=== PATIENT | female | born 1985 | race African-American/Black ===

== ENCOUNTER 2016-12-11 06:18 | Emergency (ER) | payer OTHER ==
[~2016-12-11] VITALS: Ht 170.2 cm; Wt 129.3 kg
[~2016-12-11 06:18] MED LIST: BACTRIM DS 8001 TAB PO; DOXYCYCLINE150 M1 PO; LISINOPRIL 10MG10 MG PO; LODINE200 MG PO; MACROBID 100MG100 MG PO; NOMEDS *; PHENERGAN 25MG.25 M1 PO; VICODIN 5/500 T1 TAB PO; VOLTAREN75 MG PO
--- NOTE | 2016-12-11 06:42 | Emergency Room Report ---
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 N Clinical Suspician of Infection? N Mental Status: 1 - Regular (Normal Baseline) Sepsis Risk:Low Sepsis Risk Have you (or family members/close friends) recently traveled outside the [place]? N If Yes, where/when: Have you had exposure to infectious disease within the past month? N TB? Other? Specify: Source patient, RN notes reviewed, family, old records Exam Limitations no limitations Comment pt with known exposure to flu and presents for eval as she is achey and sl cough Cardiac Chest Pain Chest pain indicative of cardiac No Timing/Duration this evening Severity moderate ALLERGIES Coded Allergies: No Known Allergies (04/11/16) Home Medications Reported Medications No Known Home Medications History Medical History General Angina: No [place]: No Hypertension? Yes Hyperlipidemia? No CHF? No COPD? No Asthma? No Thyroid Problems? No Hypothyroidism? No CVA? No Seizures? No Diabetes? No GB Disease: No MRSA? No TB? No Cancer? 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 Respiratory denies cough, denies shortness of breath, denies wheezing Cardiovascular denies chest pain, denies palpitations, denies syncope Gastrointestinal denies diarrhea, nausea Genitourinary denies: dysuria, frequency, hesitancy, hematuria. Musculoskeletal denies back pain, denies joint pain, denies joint swelling, denies neck pain Skin denies rash Psychiatric/Neurological denies headache, denies seizure Physical Exam Vital Signs Vital Signs Date Time Temp Pulse Resp B/P Pulse O2 O2 Flow FiO2 Ox Delivery Rate 12/12 627 98.7 68 18 154/69 100 - WBC >12,000 or <4,000 or 10% bands? 2 or more SIRS Criteria Met? B/P:154/69 MAP:97 Creatinine >2.0? UA output<0.5ml/kg/hr for 2 hrs? Platelet count >100,000? Lactate >2.0mmol/1? INR >1.2 or PTT > than 60 sec? Evidence of Organ Dysfunction? Provider documented clinical suspician of infection? N Sepsis Criteria Count: 1 Sepsis Risk: Low Sepsis Risk General Appearance no apparent distress Eye Exam - bilateral eye PERRL, bilateral eye EOMI Ear, Nose, Throat normal ENT inspection Neck supple Respiratory Status No: respiratory distress. Lung Sounds bilateral: lungs clear. 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 No Results/Orders Laboratory Tests 12/11/16 0626: Influenza Type A Ag NOT DETECTED, Influenza Type B Ag NOT DETECTED Orders Procedure Date/time Status INFLUENZA A&B ANTIGENS 12/11 626 Complete Departure Departure Time of Disposition 07 Disposition DC Home or Self Care(routine) Clinical Impression Primary Impression: Flu syndrome Condition STABLE Referrals Sulaiman Wetzel (Family) Patient Instructions DI for H1N1 Influenza -- Adult Additional Instructions advil/tyenol and use meds and see pcp for follow up Discharge Counseling Counseled pt/family regarding diagnosis, test results, medications/RX, follow up needs Prescriptions Current Visit Scripts Oseltamivir Phosphate (Tamiflu 75MG Capsule) 75 MG PO BID #10 CAP ED Critical Care Critical Care No at 0716
[2016-12-11] MEDS ORDERED: TAMIFLU 75MG CA75 MG PO (07:12)
[2016-12-11 07:16] VITALS: BP 122/67
== END 2016-12-11 07:18 | disposition home or self-care (01) ==
LOC: ER 06:18
DX: J10.1 Influenza due to other identified influenza virus with other respiratory manifestations (principal)

== ENCOUNTER 2017-07-09 05:36 | Emergency (ER) | payer SELFPAY ==
[~2017-07-09] VITALS: Ht 170.2 cm; Wt 133.8 kg
--- NOTE | 2017-07-09 07:09 | Emergency Room Report ---
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 N Clinical Suspician of Infection? N Mental Status: 1 - Regular (Normal Baseline) Sepsis Risk:Low Sepsis Risk Have you (or family members/close friends) recently traveled outside the [place]? N If Yes, where/when: Have you had exposure to infectious disease within the past month? N TB? Other? Specify: Source patient, RN notes reviewed, family, old records Exam Limitations no limitations Comment pt with swollen ankle over the last few days w/o sob or fever Cardiac Chest Pain Chest pain indicative of cardiac No Timing/Duration this evening Severity moderate ALLERGIES Coded Allergies: No Known Allergies (04/11/16) Home Medications Reported Medications Phentermine HCl (Adipex-P) 37.5 MG PO DAILY History Medical History General CAD? No Angina: No [place]: No Hypertension? Yes Hyperlipidemia? No CHF? No DVT? No PE? No COPD? No Asthma? No Anemia? No GERD? No Gastric ulcers? No GI Bleed? No Hernia? No Thyroid Problems? No Hypothyroidism? No CVA? No Seizures? No Diabetes? No Renal Insuffiency? No End Stage Renal Disease? No UTI? No Stones? No BPH? No GB Disease: No Nephritic Syndrome? No Asplenia? No Hepatitis? No Sickle Cell Disease? No Arthritis? No Migraines? No Cataracts? No Glaucoma? No MRSA? No HIV? No TB? No Anxiety? No Depression? No Cancer? No More? 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 Respiratory denies cough, denies shortness of breath, denies wheezing Cardiovascular denies chest pain, denies palpitations, denies syncope Gastrointestinal denies abdominal pain, denies diarrhea, denies vomiting Genitourinary denies: dysuria, frequency, hesitancy, hematuria. Musculoskeletal denies back pain, denies joint pain, denies neck pain Skin denies rash Psychiatric/Neurological denies headache, denies seizure Physical Exam Vital Signs Vital Signs Date Time Temp Pulse Resp B/P Pulse O2 O2 Flow FiO2 Ox Delivery Rate 07/09 0542 98.2 62 14 147/79 99 - WBC >12,000 or <4,000 or 10% bands? 2 or more SIRS Criteria Met? B/P:147/79 MAP:101 Creatinine >2.0? UA output<0.5ml/kg/hr for 2 hrs? Platelet count >100,000? Lactate >2.0mmol/1? INR >1.2 or PTT > than 60 sec? Evidence of Organ Dysfunction? Provider documented clinical suspician of infection? N Sepsis Criteria Count: 0 Sepsis Risk: Low Sepsis Risk General Appearance no apparent distress Eye Exam - bilateral eye PERRL, bilateral eye EOMI Ear, Nose, Throat normal ENT inspection Neck supple Respiratory Status No: respiratory distress. 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 No Results/Orders Laboratory Tests 07/09/17 0745: Urine Color YELLOW, Urine Appearance CLEAR, Urine pH 6.0, Ur Specific [place] 1.025, Urine Protein NEGATIVE, Urine Ketones NEGATIVE, Urine Blood TRACE-LYSED, Urine Nitrate NEGATIVE, Urine Bilirubin NEGATIVE, Urine Urobilinogen 0.2, Ur Leukocyte Esterase NEGATIVE, Urine RBC OCC, Urine WBC 3-5, Ur Squamous Epith Cells 5-10, Urine Bacteria 2+, Urine Glucose NEGATIVE 07/09/17 0715: Sodium 139, Potassium 4.3, Chloride 107, Carbon Dioxide 25, BUN 16, Creatinine 0.9, Estimated Creat Clear 191, Estimated GFR (MDRD) 73, Glucose 106, Calcium 8.5, Total Bilirubin 0.2, AST 13 L, ALT 24, Alkaline Phosphatase 72, Total Protein 7.4, Albumin 3.4, Globulin 4.0 H, Albumin/Globulin Ratio 0.9 L, TSH 1.70, Thyroxine (T4) 5.9, WBC 4.5 L, RBC 4.45, Hgb 10.2 L, Hct 33.5 L, MCV 75.2 L, RDW 14.9, Plt Count 294, Gran % 46.6, Gran # 2.1, Lymphocytes % 46.1, Monocytes % 7.3, Lymphocytes # 2.1, Monocytes # 0.3, PUBS MCHC 30.4 L, MCH 22.9 L Orders Procedure Date/time Status CULTURE, URINE 07/09 745 Active URINE 07/09 711 Complete URINALYSIS/COMPLETE 07/09 710 Complete THYROID STIMULATING HORMONE 07/09 710 Complete THYROXINE (T4) 07/09 710 Complete COMPLETE METABOLIC PANEL 07/09 710 Complete CBC WITH AUTO DIFF 07/09 710 Complete Departure Departure Time of Disposition 804 Disposition DC Home or Self Care(routine) Clinical Impression Primary Impression: Dependent edema Secondary Impressions: Anemia Qualifiers: Anemia type: unspecified type Qualified Code: D64.9 - Anemia, unspecified Condition STABLE Patient Instructions DI for Dependent Edema Additional Instructions please see pcp for follow up Discharge Counseling Counseled pt/family regarding diagnosis, test results, follow up needs ED Critical Care Critical Care No at 0807
[2017-07-09 07:26] LABS: HEMOGLOBIN 10.2 g/dL (12.2-16.2); LYMPH # 2.1 K/mm3 (0.7-4.5); LYMPH % 46.1 % (10-50.0)
[2017-07-09 07:53] LABS: URINE BILIRUBIN - DIPSTICK NEGATIVE (NEG); URINE BLOOD TRACE-LYSED (NEG)
[2017-07-09 08:27] VITALS: BP 138/82
--- OUTSIDE RECORDS SUMMARY | 2017-07-18 06:26 | External Medical Summary Rpt | CCD ---
Author Author , JACKIE MEJIA Address Unknown Phone [email or web address] Care Team Providers Care Potato Picker Name Role Phone NEHEMIAS MALONEY MD, Unavailable Unavailable NEHEMIAS MALONEY MD Purpose Continuity of Care Document - 06-17-2012 through 2016 Problems Code Diagnosis DOS Provider Status 305.1 305.1 05-18-2013 [place] TOBACCO USE [facility] 401.9 401.9 05-18-2013 [facility] 847.2 847.2 05-18-2013 [place] SPRAIN [facility] REGION Allergies, Adverse Reactions, Alerts Type Drug Allergy Adverse Reaction to Substance Substance Reaction Severity No Known Allergies - Unknown Mild Nka Vital Signs 06-09-2013 18:10 Name Value Interpretat Reference Comment ion Range BP 80 mm[Hg] Diastolic BP Systolic 123 mm[Hg] Heart 75 /min Rate/Pulse O2% 98 % Respiratory 20 /min Rate 05-18-2013 14:59 Name Value Interpretat Reference Comment ion Range BP 86 mm[Hg] Diastolic BP Systolic 147 mm[Hg] Heart 56 /min Rate/Pulse O2% 100 % Respiratory 16 /min Rate 05-18-2013 14:57 Name Value Interpretat Reference Comment ion Range BP 86 mm[Hg] Diastolic BP Systolic 147 mm[Hg] Heart 56 /min Rate/Pulse O2% 100 % Respiratory 16 /min Rate Results Labs Lab Lab Date Result Refere Interp Status Commen Order Detail nces retati t Range on Urinalysis dipstick W Reflex Microscopic panel in Urine (07-09-2017 07:45) Bacteri 2+ O complet a 017 ed [Presen 07:45 ce] in Urine sedimen t by Light microsc opy Erythro OCC 0 complet cytes 017 ed [Presen 07:45 ce] in Urine sedimen t by Light microsc opy Epithel 5-10 0#/hp complet ial 017 f - ed cells.s 07:45 5#/hp quamous f [Presen ce] in Urine sedimen t by Microsc opy high power field Leukocy 3-5 O complet watson 017 wbc/hpf ed [#/volu 07:45 me] in Urine Urinalysis dipstick W Reflex Microscopic panel in Urine (07-09-2017 07:45) Appeara CLEAR CLEAR complet nce of 017 ed Urine 07:45 Bilirub NEGATIV NEG complet in 017 E ed [Presen 07:45 ce] in Urine by Test strip Erythro TRACE-L NEG complet cytes 017 YSED ed [Presen 07:45 ce] in Urine Color YELLOW YELLOW complet of 017 ed Urine 07:45 Ketones NEGATIV NEG complet 017 E ed [Presen 07:45 ce] in Urine by Automat ed test strip Mucus NEGATIV NEG complet [Presen 017 E ed ce] in 07:45 Urine sedimen t by Light microsc opy Nitrite NEGATIV NEG complet 017 E ed [Presen 07:45 ce] in Urine by Test strip Urobili 0.2 NEG complet nogen 017 ed [Presen 07:45 ce] in Urine by Test strip CHLAMYDIA AND GONORRHEA TESTING (01-25-2015 10:00) Chlamyd NEGATIV complet ia 015 E ed trachom 10:00 atis rRNA [Presen ce] in Unspeci fied specime n by Probe & target amplifi cation method Neisser NEGATIV complet ia 015 E ed gonorrh 10:00 oeae rRNA [Presen ce] in Unspeci fied specime n by Probe & target amplifi cation method Treponema pallidum IgG Ab [Presence] in Serum by Immunoassay (01-25-2015 10:00) Trepone NON-CORIE complet ma 015 CTIVE ed pallidu 10:00 m IgG Ab [Presen ce] in Serum by Immunoa ssay CHLAMYDIA AND GONORRHEA TESTING (01-25-2015 10:00) COLLECT D. complet OR 015 WHITLEY, ed 10:00 AUTOMOTIVE INSTRUCTOR ETHNICI BLACK, complet TY 015 NON-HIS ed 10:00 PANIC KIT 2015-01 complet EXPIRAT 015 -30 ed ION 10:00 DATE SYMPTOM YES complet S 015 ed 10:00 REASON VOLUNTE complet FOR 015 ER/MEDI ed REQUEST 10:00 EMMANUEL PROBLEM SPECIME FEMALE complet N 015 ENDOCER ed SOURCE 10:00 VICAL PREGNAN NO complet T 015 ed 10:00 CHART [id number] complet NUMBER 015 2 ed 10:00 Chlamyd Pending complet ia 015 ed trachom 10:00 atis rRNA [Presen ce] in Unspeci fied specime n by Probe & target amplifi cation method Neisser Pending complet ia 015 ed gonorrh 10:00 oeae rRNA [Presen ce] in Unspeci fied specime n by Probe & target amplifi cation method Treponema pallidum IgG Ab [Presence] in Serum by Immunoassay (01-25-2015 10:00) COLLECT D. complet OR 015 WHITLEY, ed 10:00 AUTOMOTIVE INSTRUCTOR ETHNICI BLACK complet TY 015 ed 10:00 PURPOSE DIAGNOS complet OF 015 TIC ed EXAM 10:00 SPECIME BLOOD complet N 015 ed SOURCE 10:00 CHART [id number] complet NUMBER 015 2 ed 10:00 Trepone Pending complet ma 015 ed pallidu 10:00 m IgG Ab [Presen ce] in Serum by Immunoa ssay CHLAMYDIA AND GONORRHEA TESTING (04-27-2014 15:00) Laundry Washer: Omaira Graham MD FCAP Lab: [facility] of Laboratory Services Lab Address: [address] [place] [address], [address] [place] [id number] 04-27-2014 3:00 pm Specimen Collection Start Date/Time: Flat Breakdown Processor: Specimen Viridiana'rosaura 05-03-2014 9:45 am Date/Time: Ordering Physician: [facility] ([facility]) 05-04-2014 9:00 am Results Rpt/Status Change Date/Time: This report contains patient information that must be protected in accordance with the Health Insurance Portability and Accountability Act. AMPLIFI NEGATIV complet ED N 014 E ed GONORRH 15:00 OEAE TEST Comment: NEGATIVE RESULT= WITHIN NORMAL LIMITS Comment: POSITIVE RESULT= ABNORMAL Comment: EQUIVOCAL RESULT= INDETERMINATE Comment: UNSATISFACTORY RESULT= INVALID Comment: THE APTIMA COMBO 2 ASSAY IS NOT INTENDED FOR THE EVALUATION OF SUSPECTED Comment: SEXUAL ABUSE OR FOR OTHER MEDICO-LEGAL INDICATIONS. FOR THOSE PATIENTS FOR Comment: WHOM A FALSE POSITIVE RESULT MAY HAVE ADVERSE PSYCHO-SOCIAL IMPACT, THE [facility] Comment: RECOMMENDS RETESTING. Comment: \E\.br\E\This report contains patient information that must be protected in accordance with the Health Insurance Portability and Accountability Act. AMPLIFI NEGATIV complet ED 014 E ed CHLAMYD 15:00 IA TEST Comment: NEGATIVE RESULT= WITHIN NORMAL LIMITS Comment: POSITIVE RESULT= ABNORMAL Comment: EQUIVOCAL RESULT= INDETERMINATE Comment: UNSATISFACTORY RESULT= INVALID CHART NA complet NUMBER 014 ed 15:00 PREGNAN NO complet T 014 ed 15:00 SPECIME URINE complet N 014 ed SOURCE 15:00 REASON REVISIT complet FOR 014 /ANNUAL ed REQUEST 15:00 FAMILY PLANNIN G VISIT SYMPTOM NO complet S 014 ed 15:00 KIT -30-1 complet EXPIRAT 014 4 ed ION 15:00 DATE ETHNICI BLACK, complet TY 014 NON-HIS ed 15:00 PANIC COLLECT PT/TAMM complet OR 014 Y ed 15:00 LOU RN CHLAMYDIA AND GONORRHEA TESTING (04-27-2014 15:00) Chlamyd NEGATIV complet ia 014 E ed trachom 15:00 atis rRNA [Presen ce] in Unspeci fied specime n by Probe & target amplifi cation method Neisser NEGATIV complet ia 014 E ed gonorrh 15:00 oeae rRNA [Presen ce] in Unspeci fied specime n by Probe & target amplifi cation method CHLAMYDIA AND GONORRHEA TESTING (04-27-2014 15:00) COLLECT PT/TAMM complet OR 014 Y ed 15:00 LOU RN ETHNICI BLACK, complet TY 014 NON-HIS ed 15:00 PANIC KIT 07-06- complet EXPIRAT 014 4 ed ION 15:00 DATE SYMPTOM NO complet S 014 ed 15:00 REASON REVISIT complet FOR 014 /ANNUAL ed REQUEST 15:00 FAMILY PLANNIN G VISIT SPECIME URINE complet N 014 ed SOURCE 15:00 PREGNAN NO complet T 014 ed 15:00 CHART NA complet NUMBER 014 ed 15:00 Chlamyd Pending complet ia 014 ed trachom 15:00 atis rRNA [Presen ce] in Unspeci fied specime n by Probe & target amplifi cation method Neisser Pending complet ia 014 ed gonorrh 15:00 oeae rRNA [Presen ce] in Unspeci fied specime n by Probe & target amplifi cation method CHLAMYDIA AND GONORRHEA TESTING (06-17-2012 12:00) Chlamyd NEGATIV complet ia 012 E ed trachom 12:00 atis rRNA [Presen ce] in Unspeci fied specime n by Probe & target amplifi cation method Neisser NEGATIV complet ia 012 E ed gonorrh 12:00 oeae rRNA [Presen ce] in Unspeci fied specime n by Probe & target amplifi cation method CHLAMYDIA AND GONORRHEA TESTING (06-17-2012 12:00) COLLECT NA complet OR 012 ed 12:00 ETHNICI BLACK, complet TY 012 NON-HIS ed 12:00 PANIC KIT 01-331- complet EXPIRAT 012 13 ed ION 12:00 DATE SYMPTOM YES complet S 012 ed 12:00 REASON VOLUNTE complet FOR 012 ER/MEDI ed REQUEST 12:00 EMMANUEL PROBLEM SPECIME FEMALE complet N 012 ENDOCER ed SOURCE 12:00 VICAL PREGNAN NO complet T 012 ed 12:00 CHART NA complet NUMBER 012 ed 12:00 Chlamyd Pending complet ia 012 ed trachom 12:00 atis rRNA [Presen ce] in Unspeci fied specime n by Probe & target amplifi cation method Neisser Pending complet ia 012 ed gonorrh 12:00 oeae rRNA [Presen ce] in Unspeci fied specime n by Probe & target amplifi cation method Encounters Encounter Start End Date Code Location Performer Type Date Emergency ONDINA ROSARIO MD (ER) 3 17:54 3 18:11 [facility] Emergency ONDINA MALONEY (ER) 3 14:14 3 14:59 [facility] NEHEMIAS
--- OUTSIDE RECORDS SUMMARY | 2017-07-18 06:26 | External Medical Summary Rpt | CCD ---
Author Author , JACKIE MEJIA Address Unknown Phone [email or web address] Care Team Providers Care Electric Shaver Mechanic Name Role Phone NEHEMIAS MALONEY MD, Unavailable Unavailable NEHEMIAS MALONEY MD Purpose Continuity of Care Document - 06-17-2012 through 2016 Problems Code Diagnosis DOS Provider Status 305.1 305.1 05-18-2013 [place] [address] USE [facility] 401.9 401.9 05-18-2013 [facility] 847.2 847.2 05-18-2013 [place] SPRAIN [facility] REGION Allergies, Adverse Reactions, Alerts [...] D. complet OR 015 WHITLEY, ed 10:00 RADIOLOGY ASSISTANT ETHNICI BLACK, complet TY 015 NON-HIS ed 10:00 PANIC KIT 2015-01 complet EXPIRAT 015 -30 ed ION 10:00 DATE SYMPTOM YES complet S 015 ed 10:00 REASON VOLUNTE complet FOR 015 ER/MEDI ed REQUEST 10:00 EMMANUEL PROBLEM SPECIME FEMALE complet N 015 ENDOCER ed SOURCE 10:00 VICAL PREGNAN NO complet T 015 ed 10:00 CHART [id number] complet NUMBER 015 2 ed 10:00 Chlamyd [...] D. complet OR 015 WHITLEY, ed 10:00 RADIOLOGY ASSISTANT ETHNICI BLACK complet TY 015 ed 10:00 PURPOSE DIAGNOS complet OF 015 TIC ed EXAM 10:00 SPECIME BLOOD complet N 015 ed SOURCE 10:00 CHART [id number] complet NUMBER 015 2 ed 10:00 Trepone Pending complet ma 015 ed pallidu 10:00 m IgG Ab [Presen ce] in Serum by Immunoa ssay CHLAMYDIA AND GONORRHEA TESTING (04-27-2014 15:00) Record Librarian: Omaira Graham MD FCAP Lab: [facility] Division of Laboratory Services Lab Address: [address] [place] [address], [address] [place] [id number] 04-27-2014 3:00 pm Specimen Collection Start Date/Time: Steam Shovel Runner: Specimen Viridiana'rosarua 05-03-2014 9:45 am Date/Time: Ordering Physician: [facility] ([place]) 05-04-2014 9:00 am Results Rpt/Status Change Date/Time: [...] RESULT MAY HAVE ADVERSE PSYCHO-SOCIAL IMPACT, THE [facility] Comment: RECOMMENDS RETESTING. Comment: \E\.br\E\This report contains [...] ROSARIO MD (ER) 3 17:54 3 18:11 [facility] Emergency ONDINA MALONEY (ER) 3 14:14 3 14:59 [facility] NEHEMIAS
--- OUTSIDE RECORDS SUMMARY | 2017-07-18 06:26 | External Medical Summary Rpt | CCD ---
Demographics Preferred Language [place] Korean Marital Status Unknown Scientologist Affiliation Unknown Race Unknown Ethnic Group Unknown Author Author , JACKIE Organization JACKIE Address Unknown Phone Immunization Unable to retrieve immunization data due to connection failure with Immunization Registry. Please try again later.
--- OUTSIDE RECORDS SUMMARY | 2017-07-18 06:26 | External Medical Summary Rpt | CCD ---
Author Author , JACKIE MEJIA Address Unknown Phone [email or web address] Purpose Continuity of Care Document - through 2016
--- OUTSIDE RECORDS SUMMARY | 2017-07-18 06:26 | External Medical Summary Rpt | CCD ---
Demographics Preferred Language Togolese Marital Status Unknown Alevism Affiliation Unknown Race Unknown Ethnic Group Unknown Author Author , JACKIE Organization JACKIE Address Unknown Phone Immunization Unable to retrieve immunization data due to connection failure with Immunization Registry. Please try again later.
--- OUTSIDE RECORDS SUMMARY | 2017-07-18 06:26 | External Medical Summary Rpt | CCD ---
Author Author , JACKIE MEJIA Address Unknown Phone [email or web address] Purpose Continuity of Care Document - through 2016
--- OUTSIDE RECORDS SUMMARY | 2017-07-18 06:27 | External Medical Summary Rpt ---
Author Author JACKIE Valero, [employer] Organization [employer] Address Unknown Phone Unavailable Results Urinalysis dipstick W Reflex Microscopic panel in Urine Observa Value Referen Units Interpr Notes Date tion ce etation Range Appeara CLEAR CLEAR No No No Jul 09 nce of informa informa informa 2016 Urine tion in tion in tion in 7:45 AM source source source data data data Bacteri 2+ O No No No Jul 09 a informa informa informa 2016 [Presen tion in tion in tion in 7:45 AM ce] in source source source Urine data data data sedimen t by Light microsc opy Bilirub NEGATIV NEG No No No Jul 09 in E informa informa informa 2016 [Presen tion in tion in tion in 7:45 AM ce] in source source source Urine data data data by Test strip Erythro TRACE-L NEG No No No Jul 09 cytes YSED informa informa informa 2016 [Presen tion in tion in tion in 7:45 AM ce] in source source source Urine data data data Color YELLOW YELLOW No No No Jul 09 of informa informa informa 2016 Urine tion in tion in tion in 7:45 AM source source source data data data Glucose NEG No No No Jul 09 [Mass/vol informati informati informati 2016 7:45 ume] in on in on in on in AM Urine by source source source Test data data data strip Ketones NEGATIV NEG mg/dL No No Jul 09 E informa informa 2016 [Presen tion in tion in 7:45 AM ce] in source source Urine data data by Automat ed test strip Mucus NEGATIV NEG No No No Jul 09 [Presen E informa informa informa 2016 ce] in tion in tion in tion in 7:45 AM Urine source source source sedimen data data data t by Light microsc opy Nitrite NEGATIV NEG No No No Jul 09 E informa informa informa 2016 [Presen tion in tion in tion in 7:45 AM ce] in source source source Urine data data data by Test strip pH of 5.0 - 8.5 No Normal No Jul 09 Urine informati informati 2016 7:45 on in on in AM source source data data Protein NEG mg/dL No No Jul 09 [Mass/vol informati informati 2016 7:45 ume] in on in on in AM Urine by source source Automated data data test strip Erythro OCC 0 rbc/hpf No No Jul 09 cytes informa informa 2016 [Presen tion in tion in 7:45 AM ce] in source source Urine data data sedimen t by Light microsc opy Specific 1.005 - No Normal No Jul 09 gravity 1.030 informati informati 2016 7:45 of Urine on in on in AM source source data data Epithel 5-10 0 - 5 #/hpf No No Jul 09 ial informa informa 2016 cells.s tion in tion in 7:45 AM quamous source source data data [Presen ce] in Urine sedimen t by Microsc opy high power field Urobili 0.2 NEG E.U./dL No No Jul 09 nogen informa informa 2016 [Presen tion in tion in 7:45 AM ce] in source source Urine data data by Test strip Leukocy [3 O wbc/hpf No No Jul 09 watson wbc/hpf informa informa 2016 [#/volu ; 5 tion in tion in 7:45 AM me] in wbc/hpf source source Urine ] data data Urinalysis dipstick W Reflex Microscopic panel in Urine Observa Value Referen Units Interpr Notes Date tion ce etation Range Appeara CLEAR CLEAR No No No Jul 09 nce of informa informa informa 2016 Urine tion in tion in tion in 7:45 AM source source source data data data Bilirub NEGATIV NEG No No No Jul 09 in E informa informa informa 2016 [Presen tion in tion in tion in 7:45 AM ce] in source source source Urine data data data by Test strip Erythro TRACE-L NEG No No No Jul 09 cytes YSED informa informa informa 2016 [Presen tion in tion in tion in 7:45 AM ce] in source source source Urine data data data Color YELLOW YELLOW No No No Oct 3 of informa informa informa 2017 Urine tion in tion in tion in 7:45 AM source source source data data data Glucose NEG No No No Oct 3 [Mass/vol informati informati informati 2016 7:45 ume] in on in on in on in AM Urine by source source source Test data data data strip Ketones NEGATIV NEG mg/dL No No Oct 3 E informa informa 2016 [Presen tion in tion in 7:45 AM ce] in source source Urine data data by Automat ed test strip Mucus NEGATIV NEG No No No Oct 3 [Presen E informa informa informa 2016 ce] in tion in tion in tion in 7:45 AM Urine source source source sedimen data data data t by Light microsc opy Nitrite NEGATIV NEG No No No Oct 3 E informa informa informa 2016 [Presen tion in tion in tion in 7:45 AM ce] in source source source Urine data data data by Test strip pH of 5.0 - 8.5 No Normal No Oct 3 Urine informati informati 2017 7:45 on in on in AM source source data data Protein NEG mg/dL No No Oct 3 [Mass/vol informati informati 2017 7:45 ume] in on in on in AM Urine by source source Automated data data test strip Specific 1.005 - No Normal No Oct 3 gravity 1.030 informati informati 2017 7:45 of Urine on in on in AM source source data data Urobili 0.2 NEG E.U./dL No No Oct 3 nogen informa informa 2016 [Presen tion in tion in 7:45 AM ce] in source source Urine data data by Test strip Choriogonadotropin.beta subunit [Units] in 24 hour Urine Observa Value Referen Units Interpr Notes Date tion ce etation Range Choriogon NEG No No No Oct 3 adotropin informati informati informati 2017 7:45 .beta on in on in on in AM subunit source source source [Units] data data data in 24 hour Urine Comprehensive metabolic 2000 panel in Serum or Plasma Observa Value Referen Units Interpr Notes Date tion ce etation Range Albumin/G 1.1 - 1.8 No Low No Oct 3 lobulin informati informati 2017 7:15 [Mass on in on in AM ratio] in source source Serum or data data Plasma Albumin 3.4 - 5.0 gm/dL Normal No Oct 3 [Mass/vol informati 2017 7:15 ume] in on in AM Serum or source Plasma data Alkaline 46 - 116 U/L Normal No Oct 3 phosphata informati 2017 7:15 se on in AM [Enzymati source c data activity/ volume] in Serum or Plasma Bilirubin 0.2 - 1.0 mg/dL Normal No Oct 3 .total informati 2017 7:15 [Mass/vol on in AM ume] in source Serum or data Plasma Urea 7 - 18 mg/dL Normal No Oct 3 nitrogen informati 2017 7:15 [Mass/vol on in AM ume] in source Serum or data Plasma Calcium 8.5 - mg/dL Normal No Oct 3 [Mass/vol 10.1 informati 2017 7:15 ume] in on in AM Serum or source Plasma data Chloride 98 - 107 mmoL/L Normal No Oct 3 [Moles/vo informati 2017 7:15 lume] in on in AM Serum or source Plasma data Carbon 21.0 - mmoL/L Normal No Oct 3 dioxide, 32.0 informati 2017 7:15 total on in AM [Moles/vo source lume] in data Serum or Plasma Creatinin 0.55 - mg/dL Normal No Oct 3 e 1.02 informati 2017 7:15 [Mass/vol on in AM ume] in source Serum or data Plasma Creatinin 50 - 200 ML/MIN Normal No Oct 3 e renal informati 2016 7:15 clearance on in AM source predicted data by Cockcroft -Gault formula Estimated 59- ML/MIN No REFERENCE Oct 3 informati RANGE: 2017 7:15 glomerula on in >60 AM r source ML/MIN/1. filtratio data 73 SQUARE n rate METERSIf (GF this patient is -A merican, then multiply theresult by 1.210. Globulin 1.3 - 3.2 gm/dL High No Oct 3 [Mass/vol informati 2017 7:15 ume] in on in AM Serum source data Glucose 74 - 106 mg/dL Normal No Oct 3 [Mass/vol informati 2016 7:15 ume] in on in AM Serum or source Plasma data Potassium 3.5 - 5.1 mmoL/L Normal No Oct 3 informati 2016 7:15 [Moles/vo on in AM lume] in source Serum or data Plasma Sodium 136 - 145 mmoL/L Normal No Jul 3 [Moles/vo informati 2016 7:15 lume] in on in AM Serum or source Plasma data Aspartate 15 - 37 U/L Low No Jul 3 informati 2016 7:15 aminotran on in AM sferase source [Enzymati data c activity/ volume] in Serum or Plasma Alanine 12 - 78 U/L Normal No Jul 3 aminotran informati 2016 7:15 sferase on in AM [Enzymati source c data activity/ volume] in Serum or Plasma Protein 6.4 - 8.2 gm/dL Normal No Jul 3 [Mass/vol informati 2016 7:15 ume] in on in AM Serum or source Plasma data Thyroxine (T4) [Mass/volume] in Serum or Plasma Observa Value Referen Units Interpr Notes Date tion ce etation Range Thyroxine 4.7 - ug/dl Normal No Jul 3 (T4) 13.3 informati 2016 7:15 [Mass/vol on in AM ume] in source Serum or data Plasma Thyrotropin [Units/volume] in Serum or Plasma Observa Value Referen Units Interpr Notes Date tion ce etation Range Thyrotrop 0.358 - uIU/ml Normal No Jul 3 in 3.740 informati 2016 7:15 [Units/vo on in AM lume] in source Serum or data Plasma CBC W Auto Differential panel in Blood Observa Value Referen Units Interpr Notes Date tion ce etation Range Granulocy 1.8 - 7.8 K/mm3 Normal No Jul 3 watson informati 2016 7:15 [#/volume on in AM ] in source Blood by data Automated count Granulocy 37.0 - % Normal No Jul 3 watson/100 80.0 informati 2016 7:15 leukocyte on in AM s in source Blood by data Automated count Hematocri 37.0 - % Low No Jul 3 t [Volume 47.0 informati 2016 7:15 on in AM Fraction] source of Blood data Hemoglobi 12.2 - g/dL Low No Jul 3 n 16.2 informati 2016 7:15 [Mass/vol on in AM ume] in source Blood data Lymphocyt 0.7 - 4.5 K/mm3 Normal No Jul 3 es informati 2016 7:15 [#/volume on in AM ] in source Unspecifi data ed specimen by Automated count Lymphocyt 10 - 50.0 % Normal No Oct 3 es informati 2016 7:15 [#/volume on in AM ] in source Unspecifi data ed specimen by Automated count Erythrocy 27 - 31.2 pg Low No Oct 3 te mean informati 2016 7:15 corpuscul on in AM ar source hemoglobi data n [Entitic mass] Erythrocy 31.8 - g/dl Low No Jul 09 te mean 35.4 informati 2016 7:15 corpuscul on in AM ar source hemoglobi data n concentra tion [Mass/vol ume] by Automated count Erythrocy 82.2 - fL Low No Jul 3 te mean 97.8 informati 2016 7:15 corpuscul on in AM ar volume source [Entitic data volume] by Automated count Monocytes 0.1 - 1.0 K/mm3 Normal No Oct 3 informati 2016 7:15 [#/volume on in AM ] in source Blood by data Automated count Monocytes 1.7 - 9.3 % Normal No Oct 3 /100 informati 2017 7:15 leukocyte on in AM s in source Blood by data Automated count Platelets 142 - 424 K/mm3 Normal No Oct 3 informati 2016 7:15 [#/volume on in AM ] in source Blood data Erythrocy 4.2 - 5.4 M/mm3 Normal No Oct 3 watson informati 2016 7:15 [#/volume on in AM ] in source Amniotic data fluid Erythrocy 11.5 - % Normal No Jul 3 te 17.5 informati 2016 7:15 distribut on in AM ion width source [Entitic data volume] by Automated count Leukocyte 4.8 - K/mm3 Low No Jul 3 s 10.8 informati 2016 7:15 [#/volume on in AM ] in source Blood data CHLAMYDIA AND GONORRHEA TESTING Observa Value Referen Units Interpr Notes Date tion ce etation Range COLLECT D. No No No No Jan 25 OR WHITLEY, informa informa informa informa 2014 ENVIRONMENTAL MANAGEMENT SPECIALIST tion in tion in tion in tion in 10:00 source source source source AM data data data data ETHNICI BLACK, No No No No Jan 25 TY NON-HIS informa informa informa informa 2014 PANIC tion in tion in tion in tion in 10:00 source source source source AM data data data data KIT 2015-01 No No No No Jan 25 EXPIRAT -30 informa informa informa informa 2015 ION tion in tion in tion in tion in 10:00 DATE source source source source AM data data data data SYMPTOM YES No No No No Jan 25 S informa informa informa informa 2015 tion in tion in tion in tion in 10:00 source source source source AM data data data data REASON VOLUNTE No No No No Jan 25 FOR ER/MEDI informa informa informa informa 2015 REQUEST EMMANUEL tion in tion in tion in tion in 10:00 PROBLEM source source source source AM data data data data SPECIME FEMALE No No No No Jan 25 N ENDOCER informa informa informa informa 2015 SOURCE VICAL tion in tion in tion in tion in 10:00 source source source source AM data data data data PREGNAN NO No No No No Jan 25 T informa informa informa informa 2015 tion in tion in tion in tion in 10:00 source source source source AM data data data data CHART [id number] No No No No Jan 25 NUMBER 2 informa informa informa informa 2015 tion in tion in tion in tion in 10:00 source source source source AM data data data data Chlamyd NEGATIV No No No NEGATIV Jan 25 ia E informa informa informa E 2015 trachom tion in tion in tion in RESULT= 10:00 atis source source source WITHIN AM rRNA data data data NORMAL [Presen ce] in LIMITSP Unspeci OSITIVE fied specime RESULT= n by Probe & ABNORMA target LEQUIVO EMMANUEL amplifi RESULT= cation method INDETER MINATEU NSATISF ACTORY RESULT= INVALID Neisser NEGATIV No No No NEGATIV Jan 25 ia E informa informa informa E 2015 gonorrh tion in tion in tion in RESULT= 10:00 oeae source source source WITHIN AM rRNA data data data NORMAL [Presen ce] in LIMITSP Unspeci OSITIVE fied specime RESULT= n by Probe & ABNORMA target LEQUIVO EMMANUEL amplifi RESULT= cation method INDETER MINATEU NSATISF ACTORY RESULT= INVALID THE APTIMA COMBO 2 ASSAY IS NOT INTENDE D FOR THE EVALUAT ION OF SUSPECT EDSEXUA L ABUSE OR FOR OTHER MEDICO- LEGAL INDICAT IONS. FOR THOSE PATIENT S FORWHOM A FALSE POSITIV E RESULT MAY HAVE ADVERSE PSYCHO- SOCIAL IMPACT, THE SPOONER HEALTHRECO MMENDS RETESTI NG.\.br \This report contain s patient informa tion that must be protect ed in [facility] with the Health Insuran ce Portabi lity and Account ability Act. Treponema pallidum IgG Ab [Presence] in Serum by Immunoassay Observa Value Referen Units Interpr Notes Date tion ce etation Range COLLECT D. No No No No Jan 25 OR WHITLEY, informa informa informa informa 2015 ENVIRONMENTAL MANAGEMENT SPECIALIST tion in tion in tion in tion in 10:00 source source source source AM data data data data ETHNICI BLACK No No No No Jan 25 TY informa informa informa informa 2015 tion in tion in tion in tion in 10:00 source source source source AM data data data data PURPOSE DIAGNOS No No No No Jan 25 OF TIC informa informa informa informa 2015 EXAM tion in tion in tion in tion in 10:00 source source source source AM data data data data SPECIME BLOOD No No No No Jan 25 N informa informa informa informa 2015 SOURCE tion in tion in tion in tion in 10:00 source source source source AM data data data data CHART [id number] No No No No Jan 25 NUMBER 2 informa informa informa informa 2015 tion in tion in tion in tion in 10:00 source source source source AM data data data data Trepone NON-CORIE No No No METHOD Jan [address] informa informa informa OF 2015 pallidu tion in tion in tion in ANALYSI 10:00 m IgG source source source S: AM Ab data data data EIANORM [Presen AL ce] in RANGE: Serum NON-CORIE by CTIVE\. Immunoa br\This ssay report contain s patient informa tion that must be protect ed in [facility] with the Health Insuran ce Portabi lity and Account ability Act. CHLAMYDIA AND GONORRHEA TESTING Observa Value Referen Units Interpr Notes Date tion ce etation Range COLLECT D. No No No No Jan 25 OR WHITLEY, informa informa informa informa 2015 ENVIRONMENTAL MANAGEMENT SPECIALIST tion in tion in tion in tion in 10:00 source source source source AM data data data data ETHNICI BLACK, No No No No Jan 25 TY NON-HIS informa informa informa informa 2015 PANIC tion in tion in tion in tion in 10:00 source source source source AM data data data data KIT 2015-01 No No No No Jan 25 EXPIRAT -30 informa informa informa informa 2015 ION tion in tion in tion in tion in 10:00 DATE source source source source AM data data data data SYMPTOM YES No No No No Jan 25 S informa informa informa informa 2015 tion in tion in tion in tion in 10:00 source source source source AM data data data data REASON VOLUNTE No No No No Jan 25 FOR ER/MEDI informa informa informa informa 2015 REQUEST EMMANUEL tion in tion in tion in tion in 10:00 PROBLEM source source source source AM data data data data SPECIME FEMALE No No No No Jan 25 N ENDOCER informa informa informa informa 2015 SOURCE VICAL tion in tion in tion in tion in 10:00 source source source source AM data data data data PREGNAN NO No No No No Jan 25 T informa informa informa informa 2015 tion in tion in tion in tion in 10:00 source source source source AM data data data data CHART [id number] No No No No Jan 25 NUMBER 2 informa informa informa informa 2015 tion in tion in tion in tion in 10:00 source source source source AM data data data data Chlamyd Pending No No No No Jan 25 ia informa informa informa informa 2015 trachom tion in tion in tion in tion in 10:00 atis source source source source AM rRNA data data data data [Presen ce] in Unspeci fied specime n by Probe & target amplifi cation method Neisser Pending No No No \.br\Jan 25 ia informa informa informa is 2015 gonorrh tion in tion in tion in report 10:00 oeae source source source contain AM rRNA data data data s [Presen patient ce] in Unspeci informa fied tion specime that n by must be Probe & target protect ed in amplifi accorda cation nce method with the Health Insuran ce Portabi lity and Account ability Act. Treponema pallidum IgG Ab [Presence] in Serum by Immunoassay Observa Value Referen Units Interpr Notes Date tion ce etation Range COLLECT D. No No No No Jan 25 OR WHITLEY, informa informa informa informa 2015 ENVIRONMENTAL MANAGEMENT SPECIALIST tion in tion in tion in tion in 10:00 source source source source AM data data data data ETHNICI BLACK No No No No Jan 25 TY informa informa informa informa 2015 tion in tion in tion in tion in 10:00 source source source source AM data data data data PURPOSE DIAGNOS No No No No Jan 25 OF TIC informa informa informa informa 2015 EXAM tion in tion in tion in tion in 10:00 source source source source AM data data data data SPECIME BLOOD No No No No Jan 25 N informa informa informa informa 2015 SOURCE tion in tion in tion in tion in 10:00 source source source source AM data data data data CHART [id number] No No No No Jan 25 NUMBER 2 informa informa informa informa 2015 tion in tion in tion in tion in 10:00 source source source source AM data data data data Trepone Pending No No No \.br\Jan 25 ma informa informa informa is 2015 pallidu tion in tion in tion in report 10:00 m IgG source source source contain AM Ab data data data s [Presen patient ce] in Serum informa by tion Immunoa that ssay must be protect ed in accorda nce with the Health Insuran ce Portabi lity and Account ability Act. CHLAMYDIA AND GONORRHEA TESTING Observa Value Referen Units Interpr Notes Date tion ce etation Range COLLECT PT/TAMM No No No No Apr 27 OR Y informa informa informa informa 2014 LOU tion in tion in tion in tion in 3:00 PM RN source source source source data data data data ETHNICI BLACK, No No No No Apr 27 TY NON-HIS informa informa informa informa 2014 PANIC tion in tion in tion in tion in 3:00 PM source source source source data data data data KIT No No No No Apr 27 EXPIRAT 4 informa informa informa informa 2014 ION tion in tion in tion in tion in 3:00 PM DATE source source source source data data data data SYMPTOM NO No No No No Apr 27 S informa informa informa informa 2014 tion in tion in tion in tion in 3:00 PM source source source source data data data data REASON REVISIT No No No No Apr 27 FOR /ANNUAL informa informa informa informa 2014 REQUEST FAMILY tion in tion in tion in tion in 3:00 PM source source source source PLANNIN data data data data G VISIT SPECIME URINE No No No No Apr 27 N informa informa informa informa 2014 SOURCE tion in tion in tion in tion in 3:00 PM source source source source data data data data PREGNAN NO No No No No Apr 27 T informa informa informa informa 2014 tion in tion in tion in tion in 3:00 PM source source source source data data data data CHART NA No No No No Apr 27 NUMBER informa informa informa informa 2014 tion in tion in tion in tion in 3:00 PM source source source source data data data data Chlamyd NEGATIV No No No NEGATIV Apr 27 ia E informa informa informa E 2014 trachom tion in tion in tion in RESULT= 3:00 PM atis source source source WITHIN rRNA data data data NORMAL [Presen ce] in LIMITSP Unspeci OSITIVE fied specime RESULT= n by Probe & ABNORMA target LEQUIVO EMMANUEL amplifi RESULT= cation method INDETER MINATEU NSATISF ACTORY RESULT= INVALID Neisser NEGATIV No No No NEGATIV Apr 27 ia E informa informa informa E 2014 gonorrh tion in tion in tion in RESULT= 3:00 PM oeae source source source WITHIN rRNA data data data NORMAL [Presen ce] in LIMITSP Unspeci OSITIVE fied specime RESULT= n by Probe & ABNORMA target LEQUIVO EMMANUEL amplifi RESULT= cation method INDETER MINATEU NSATISF ACTORY RESULT= INVALID THE APTIMA COMBO 2 ASSAY IS NOT INTENDE D FOR THE EVALUAT ION OF SUSPECT EDSEXUA L ABUSE OR FOR OTHER MEDICO- LEGAL INDICAT IONS. FOR THOSE PATIENT S FORWHOM A FALSE POSITIV E RESULT MAY HAVE ADVERSE PSYCHO- SOCIAL IMPACT, THE CDCRECO MMENDS RETESTI NG.\.br \This report contain s patient informa tion that must be protect ed in accorda nce with the Health Insuran ce Portabi lity and Account ability Act. CHLAMYDIA AND GONORRHEA TESTING Observa Value Referen Units Interpr Notes Date tion ce etation Range COLLECT PT/TAMM No No No No Apr 27 OR Y informa informa informa informa 2014 LOU tion in tion in tion in tion in 3:00 PM RN source source source source data data data data ETHNICI BLACK, No No No No Apr 27 TY NON-HIS informa informa informa informa 2014 PANIC tion in tion in tion in tion in 3:00 PM source source source source data data data data KIT --1 No No No No Apr 27 EXPIRAT 4 informa informa informa informa 2014 ION tion in tion in tion in tion in 3:00 PM DATE source source source source data data data data SYMPTOM NO No No No No Apr 27 S informa informa informa informa 2014 tion in tion in tion in tion in 3:00 PM source source source source data data data data REASON REVISIT No No No No Apr 27 FOR /ANNUAL informa informa informa informa 2014 REQUEST FAMILY tion in tion in tion in tion in 3:00 PM source source source source PLANNIN data data data data G VISIT SPECIME URINE No No No No Apr 27 N informa informa informa informa 2014 SOURCE tion in tion in tion in tion in 3:00 PM source source source source data data data data PREGNAN NO No No No No Apr 27 T informa informa informa informa 2014 tion in tion in tion in tion in 3:00 PM source source source source data data data data CHART NA No No No No Apr 27 NUMBER informa informa informa informa 2014 tion in tion in tion in tion in 3:00 PM source source source source data data data data Chlamyd Pending No No No No Apr 27 ia informa informa informa informa 2014 trachom tion in tion in tion in tion in 3:00 PM atis source source source source rRNA data data data data [Presen ce] in Unspeci fied specime n by Probe & target amplifi cation method Neisser Pending No No No \.br\Apr 27 ia informa informa informa is 2014 gonorrh tion in tion in tion in report 3:00 PM oeae source source source contain rRNA data data data s [Presen patient ce] in Unspeci informa fied tion specime that n by must be Probe & target protect ed in amplifi accorda cation nce method with the Health Insuran ce Portabi lity and Account ability Act. CHLAMYDIA AND GONORRHEA TESTING Observa Value Referen Units Interpr Notes Date tion ce etation Range COLLECT NA No No No No Sep 11 OR informa informa informa informa 2012 tion in tion in tion in tion in 12:00 source source source source PM data data data data ETHNICI BLACK, No No No No Sep 11 TY NON-HIS informa informa informa informa 2012 PANIC tion in tion in tion in tion in 12:00 source source source source PM data data data data KIT 01-331- [id number] No No No Sep 11 EXPIRAT 13 informa informa informa informa 2012 ION tion in tion in tion in tion in 12:00 DATE source source source source PM data data data data SYMPTOM YES No No No No Sep 11 S informa informa informa informa 2012 tion in tion in tion in tion in 12:00 source source source source PM data data data data REASON VOLUNTE No No No No Sep 11 FOR ER/MEDI informa informa informa informa 2012 REQUEST EMMANUEL tion in tion in tion in tion in 12:00 PROBLEM source source source source PM data data data data SPECIME FEMALE No No No No Sep 11 N ENDOCER informa informa informa informa 2012 SOURCE VICAL tion in tion in tion in tion in 12:00 source source source source PM data data data data PREGNAN NO No No No No Sep 11 T informa informa informa informa 2012 tion in tion in tion in tion in 12:00 source source source source PM data data data data CHART NA No No No No Sep 11 NUMBER informa informa informa informa 2012 tion in tion in tion in tion in 12:00 source source source source PM data data data data Chlamyd NEGATIV No No No NEGATIV Sep 11 ia E informa informa informa E 2012 trachom tion in tion in tion in RESULT= 12:00 atis source source source WITHIN PM rRNA data data data NORMAL [Presen ce] in LIMITSP Unspeci OSITIVE fied specime RESULT= n by Probe & ABNORMA target LEQUIVO EMMANUEL amplifi RESULT= cation method INDETER MINATEU NSATISF ACTORY RESULT= INVALID Neisser NEGATIV No No No NEGATIV Sep 11 ia E informa informa informa E 2012 gonorrh tion in tion in tion in RESULT= 12:00 oeae source source source WITHIN PM rRNA data data data NORMAL [Presen ce] in LIMITSP Unspeci OSITIVE fied specime RESULT= n by Probe & ABNORMA target LEQUIVO EMMANUEL amplifi RESULT= cation method INDETER MINATEU NSATISF ACTORY RESULT= INVALID THE APTIMA COMBO 2 ASSAY IS NOT INTENDE D FOR THE EVALUAT ION OF SUSPECT EDSEXUA L ABUSE OR FOR OTHER MEDICO- LEGAL INDICAT IONS. FOR THOSE PATIENT S FORWHOM A FALSE POSITIV E RESULT MAY HAVE ADVERSE PSYCHO- SOCIAL IMPACT, THE [facility] MMENDS RETESTI NG.\.br \This report contain s patient informa tion that must be protect ed in accorda nce with the Health Ins[employer] ce Portabi lity and Account ability Act. CHLAMYDIA AND GONORRHEA TESTING Observa Value Referen Units Interpr Notes Date tion ce etation Range COLLECT NA No No No No Sep 11 OR informa informa informa informa 2012 tion in tion in tion in tion in 12:00 source source source source PM data data data data ETHNICI BLACK, No No No No Sep 11 TY NON-HIS informa informa informa informa 2012 PANIC tion in tion in tion in tion in 12:00 source source source source PM data data data data KIT [id number] No No No Sep 11 EXPIRAT 13 informa informa informa informa 2012 ION tion in tion in tion in tion in 12:00 DATE source source source source PM data data data data SYMPTOM YES No No No No Sep 11 S informa informa informa informa 2012 tion in tion in tion in tion in 12:00 source source source source PM data data data data REASON VOLUNTE No No No No Sep 11 FOR ER/MEDI informa informa informa informa 2012 REQUEST EMMANUEL tion in tion in tion in tion in 12:00 PROBLEM source source source source PM data data data data SPECIME FEMALE No No No No Sep 11 N ENDOCER informa informa informa informa 2012 SOURCE VICAL tion in tion in tion in tion in 12:00 source source source source PM data data data data PREGNAN NO No No No No Sep 11 T informa informa informa informa 2012 tion in tion in tion in tion in 12:00 source source source source PM data data data data CHART NA No No No No Sep 11 NUMBER informa informa informa informa 2012 tion in tion in tion in tion in 12:00 source source source source PM data data data data Chlamyd Pending No No No No Sep 11 ia informa informa informa informa 2012 trachom tion in tion in tion in tion in 12:00 atis source source source source PM rRNA data data data data [Presen ce] in Unspeci fied specime n by Probe & target amplifi cation method Neisser Pending No No No \.br\ Sep 11 ia informa informa informa is 2012 gonorrh tion in tion in tion in report 12:00 oeae source source source contain PM rRNA data data data s [Presen patient ce] in Unspeci informa fied tion specime that n by must be Probe & target protect ed in amplifi accorda cation nce method with the Health Ins[employer] ce Portabi lity and Account ability Act.
--- OUTSIDE RECORDS SUMMARY | 2017-07-18 06:27 | External Medical Summary Rpt ---
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 Treponema pallidum IgG Ab [Presence] in Serum by Immunoassay Observa Value Referen Units Interpr Notes Date tion ce etation Range COLLECT D. 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 CHLAMYDIA AND GONORRHEA TESTING Observa Value Referen Units Interpr Notes Date tion ce etation Range COLLECT D. No No No No Jan 25 OR WHIT[place], informa informa informa informa 2015 HEALTH CLAIMS EXAMINER tion in tion in tion in tion [...] source AM data data data data CHART [id number] No No No No Jan 25 NUMBER [...] OR [place], informa informa informa informa 2015 HEALTH CLAIMS EXAMINER tion in tion in tion in tion [...] source AM data data data data CHART [id number] No No No No Jan 25 NUMBER [...]
== END 2017-07-09 08:28 | disposition home or self-care (01) ==
LOC: ER 05:36
PROVIDERS: Emergency Medicine
DX: R60.0 Localized edema (principal); D64.9 Anemia, unspecified; I10 Essential (primary) hypertension; F17.210 Nicotine dependence, cigarettes, uncomplicated